=== PATIENT | male | born 1955 | race Caucasian/White ===

== ENCOUNTER → 2017-03-15 | Emergency (ER) | payer MEDICAID ==
[~2017-03-15] VITALS: Ht 180.3 cm; Wt 81.6 kg
[~2017-03-15] MED LIST: ACETAMINOPHEN ES 500 MG TABLET ONE; ACETAMINOPHEN ES 500 MG TABLET PO ONE; IBUPROFEN 600 MG TABLET PO ONE
[2017-03-15 17:27] VITALS: BP 152/70
== END | disposition home or self-care (01) ==
LOC: ER 17:24
DX: M17.11 Unilateral primary osteoarthritis, right knee (principal); I10 Essential (primary) hypertension; Z90.89 Acquired absence of other organs
CPT/HCPCS: 73562; A4606; Z7610

== ENCOUNTER 2019-02-03 21:13 | Emergency (ER) | payer MEDICAID ==
[~2019-02-03] VITALS: Ht 172.7 cm; Wt 97.5 kg
[2019-02-03 22:43] VITALS: BP 132/98
--- NOTE | 2019-02-03 22:43 | NUR ---
PT AMBULATORY TO ER BED 17 BIB FAMILY C/O CONGESTION X 4 DAYS, DIZZINES SINCE THIS AFTERNOON. PT AOX4 RR EVEN AND UNLABORED. NO NVD AT THIS TIME. PT WAITING FOR MD RING.
== END 2019-02-03 23:10 | disposition home or self-care (01) ==
LOC: ER 21:14
DX: J00 Acute nasopharyngitis [common cold] (principal); R09.81 Nasal congestion; I10 Essential (primary) hypertension; M19.90 Unspecified osteoarthritis, unspecified site; Z90.89 Acquired absence of other organs

== ENCOUNTER 2020-07-31 12:06 | Emergency (ER) | payer MEDICAID ==
[~2020-07-31] VITALS: Ht 177.8 cm; Wt 79.4 kg
--- NOTE | 2020-07-31 12:25 | NUR ---
Dizzy, like the room is spinning since yesterday. Patient a/ox4, breathing even and unlabored, no sob noted. Needs attended. attached to the cafeteria monitor. Denies n/v or any weakness.
[2020-07-31 12:43] LABS: BASOPHILS % (AUTO) 0.8 % (0.0-2.0); EOSINOPHILS % (AUTO) 2.5 % (0.0-6.0); HEMATOCRIT 44 % (39-51); HEMOGLOBIN 14.6 g/dL (13.5-17.5); LYMPHOCYTES # (AUTO) 2.1 /CMM (0.8-4.8); LYMPHOCYTES % (AUTO) 35.6 % (20.0-44.0); MEAN CORPUSCULAR HGB CONC 33 g/dl (31.0-36.0); MEAN CORPUSCULAR VOLUME 95 fL (80-96); MONOCYTES # (AUTO) 0.6 /CMM (0.1-1.30); MONOCYTES % (AUTO) 9.3 % (2.0-12.0); NEUTROPHILS # (AUTO) 3.1 /CMM (1.8-8.9); NEUTROPHILS % (AUTO) 51.8 % (43.0-81.0); PLATELET COUNT (AUTO) 234 /CMM (150-450); RED BLOOD CELL COUNT(AUTO) 4.63 MIL/uL (4.5-6.0)
[2020-07-31 12:51] LABS: CALCIUM, SERUM 9.3 mg/dL (8.5-10.1); CARBON DIOXIDE 28 mmol/L (21-32); CHLORIDE 105 mmol/L (98-107); CREATININE 1.1 mg/dL (0.6-1.3); GLUCOSE 115 mg/dL (74-106); POTASSIUM 4.2 mmol/L (3.5-5.1); SODIUM SERUM 141 mmol/L (136-145); UREA NITROGEN, BLOOD 12 mg/dL (7-18)
[2020-07-31 12:56] LABS: ALANINE AMINOTRANSFERASE 36 U/L (12-78); ALBUMIN 3.5 g/dL (3.4-5.0); ALKALINE PHOSPHATASE 47 U/L (46-116); ASPARTATE AMINOTRANSFERASE 17 U/L (15-37); BILIRUBIN,DIRECT 0.1 mg/dL (0.0-0.2); BILIRUBIN,TOTAL 0.3 mg/dL (0.2-1.0); TOTAL PROTEIN, SERUM 6.7 g/dL (6.4-8.2)
--- NOTE | 2020-07-31 12:59 | NUR ---
Patient taken to CT.
[2020-07-31] MEDS ORDERED: ESCI5TAB PO (13:01)
[2020-07-31] MEDS ORDERED: LOVA10TA PO (13:01)
[2020-07-31] MEDS ORDERED: LISI-768 PO (13:01)
[2020-07-31] MEDS ORDERED: ASPI-1420 PO (13:01)
[2020-07-31] MEDS ORDERED: MECLIZINE HCL 25 MG TABLET ONE (13:42)
[2020-07-31] MEDS ORDERED: MECL-159 PO (13:47)
--- NOTE | 2020-07-31 13:52 | NUR ---
UA SENT TO LAB. PATIENT WENT TO RESTROOM, AMBULATORY WITH STEADY GAIT.
[2020-07-31 13:56] LABS: BILIRUBIN,URINE Negative (NEGATIVE); COLOR,URINE YELLOW (YELLOW); LEUKOCYTE ESTERASE ,URINE Negative (NEGATIVE); NITRITE, URINE Negative (NEGATIVE); PH,URINE 5.5 (5.0-8.0); PROTEIN,URINE Negative (NEGATIVE); UGLUCOSE Negative (NEGATIVE); UROBILINOGEN,URINE 0.2 EU/dL (0.2)
[2020-07-31 13:58] LABS: BACTERIA,URINE Rare /HPF (None Seen); RBC,URINE 0-2 /HPF (0-2); WBC,URINE 0-2 /HPF (0-3)
[2020-07-31 13:59] LABS: SQUAMOUS EPITHELIAL CELL,UR Rare /HPF (None Seen)
[2020-07-31] MEDS ORDERED: MECLIZINE HCL 12.5 MG TABLET PO ONE (14:00)
[2020-07-31] MEDS ORDERED: IV NS 0.9% 1,000 ML IV ONE (14:00)
--- NOTE | 2020-07-31 14:14 | NUR ---
PATIENT STILL C/O DIZZINESS. VSS. Addendum: 07/31/20 at 1433 by ROALCANCES ADDENDUM: DR. LAW SEARS
--- NOTE | 2020-07-31 14:31 | NUR ---
PT STS DIZZINESS IMPROVED.
[2020-07-31 14:32] VITALS: BP 114/68
--- NOTE | 2020-07-31 14:32 | NUR ---
PATIENT A/OX4, BREATHING EVEN AND UNLABORED, NO SOB NOTED. NEEDS ATTENDED. KEPT COMFORTABLE. IV removed. Catheter intact and site benign. Pressure and 4x4 applied to site. No bleeding noted.Patient discharged to home in stable condition. Written and verbal after care instructions given. Patient verbalizes understanding of instruction.
== END 2020-07-31 14:33 | disposition home or self-care (01) ==
LOC: ER 12:30
DX: R42 Dizziness and giddiness (principal); I10 Essential (primary) hypertension; F17.200 Nicotine dependence, unspecified, uncomplicated; Z90.89 Acquired absence of other organs; Z79.899 Other long term (current) drug therapy
CPT/HCPCS: 36415; 70450; 71045; 80048; 80076; 81001; 82962; 83735; 84484; 85025; 93005; 96360; 99285; 99406; J7030; J8597